=== PATIENT | male | born 1975 | race African-American/Black ===

== ENCOUNTER 2021-08-31 10:35 | Emergency (ER) | payer OTHER ==
[2021-08-31 10:43] VITALS: BP 111/71; TEMP 99.6; BMI 32.8
[2021-08-31] MEDS ORDERED: IBUPROFEN 600 MG TABLET (FP) PO ONE ×2 (10:50→11:28)
[2021-08-31 11:41] VITALS: PULSE 108
== END 2021-08-31 11:40 | disposition home or self-care (01) ==
LOC: FER 10:35
DX: M25.511 Pain in right shoulder (principal)
CPT/HCPCS: 73030-TC-RT-FY; 99283-25

== ENCOUNTER 2023-04-18 16:58 | Emergency (ER) | payer SELFPAY ==
[2023-04-18 17:11] VITALS: BMI 35.2
[2023-04-18] MEDS ORDERED: ACETAMINOPHEN 1000 MG/100 ML BAG IVPB ONE (17:21)
[2023-04-18] MEDS ORDERED: ACETAMINOPHEN INJECTION 100 ML IVPB ONE (17:25)
[2023-04-18] MEDS ORDERED: ALBUTEROL SO4 2.5/IPRATROPIUM 0.5 INH SOL 3 ML VIAL.NEB. NEB ONE (17:25)
[2023-04-18] MEDS ORDERED: SODIUM CHLORIDE 1,000 ML IV STA (17:34)
[2023-04-18 17:55] LABS: HEMATOCRIT 39.6 % (35.4-49); MCH 26.2 pg (25.7-33.7); MCHC 32.8 g/dl (32.0-35.9); MEAN CELL VOLUME 79.8 fl (80-96); MEAN PLT VOLUME 9.1 fl (7.5-11.1); RBC 4.96 10^6/uL (4.00-5.60); RDW 15.2 % (11.9-15.9); WHITE BLOOD COUNT 4.1 10^3/uL (4.0-10.8)
[2023-04-18] MEDS: ALBUTEROL SO4 2.5/IPRATROPIUM 0.5 INH SOL 3 ML VIAL.NEB. NEB SCH ×2 (17:55→17:57)
[2023-04-18] MEDS ORDERED: METOCLOPRAMIDE HCL INJECTION 10 MG/2 ML VIAL IVPUSH ONE (18:07)
[2023-04-18 18:08] LABS: ALBUMIN 4.2 g/dl (3.4-5.0); BILIRUBIN,TOTAL 0.7 mg/dl (0.2-1); MAGNESIUM 1.8 mg/dL (1.8-2.4); POTASSIUM 3.4 mmol/L (3.5-5.1); TOT PROT 6.4 g/dl (6.4-8.2)
[2023-04-18 18:16] LABS: PLATELET ESTIMATE ADEQUATE
[2023-04-18] MEDS ORDERED: METOCLOPRAMIDE HCL INJECTION 10 MG/2 ML VIAL ONE (18:31)
[2023-04-18 19:55] VITALS: BP 145/84; PULSE 78; RESP 16; TEMP 99.4
== END 2023-04-18 19:29 | disposition home or self-care (01) ==
LOC: FER 16:58
PROC: 3E033NZ Introduction of Analgesics, Hypnotics, Sedatives into Peripheral Vein, Percutaneous Approach (ICD-10-PCS; principal; 2023-04-18)
PROC: 3E033GC Introduction of Other Therapeutic Substance into Peripheral Vein, Percutaneous Approach (ICD-10-PCS; 2023-04-18)
PROC: 3E0337Z Introduction of Electrolytic and Water Balance Substance into Peripheral Vein, Percutaneous Approach (ICD-10-PCS; 2023-04-18)
PROC: 3E0F7GC Introduction of Other Therapeutic Substance into Respiratory Tract, Via Natural or Artificial Opening (ICD-10-PCS; 2023-04-18)
DX: R07.89 Other chest pain (principal); R05.9 Cough, unspecified; R42 Dizziness and giddiness; R11.0 Nausea; R06.02 Shortness of breath; R09.81 Nasal congestion; R51.9 Headache, unspecified; M62.81 Muscle weakness (generalized); Z20.822 Contact with and (suspected) exposure to COVID-19
CPT/HCPCS: 0241U-QW; 36415; 71045-TC-FY; 80053; 83735; 84484; 85027; 93005; 99285-25